=== PATIENT | male | born 1960 | race African-American/Black ===

== ENCOUNTER → 2017-04-14 | Day surgery (SDC) | payer BC ==
[~2017-04-14] VITALS: Ht 167.6 cm; Wt 64.4 kg
[~2017-04-14] MED LIST: NICODERM CQ1 EAC1 TD; PLAQUENIL200 MG PO; TEMOVATE 0.05%30 GM TP; VITAMIN D31000 UNIT PO
== END | disposition home or self-care (01) ==
LOC: AMB 11:27
PROC: 0DJD8ZZ Inspection of Lower Intestinal Tract, Via Natural or Artificial Opening Endoscopic (ICD-10-PCS; principal; 2017-04-14)
DX: Z12.11 Encounter for screening for malignant neoplasm of colon (principal); M32.9 Systemic lupus erythematosus, unspecified; F17.290 Nicotine dependence, other tobacco product, uncomplicated; Z82.49 Family history of ischemic heart disease and other diseases of the circulatory system
CPT/HCPCS: J2250